=== PATIENT | female | born 1980 | race African-American/Black ===

== ENCOUNTER 2025-06-14 18:54 | Inpatient (IN) | payer OTHER ==
[~2025-06-14] VITALS: Ht 157.5 cm; Wt 93.4 kg
[2025-06-14] MEDS: SODIUM CHLORIDE 0.9% 1,000 ML IV ONE (19:35)
[2025-06-14 19:52] LABS: HEMATOCRIT. 33.6 % (36.0-48.0); HEMOGLOBIN. 11.0 g/dL (12.0-16.0); MEAN PLATELET VOLUME 8.6 fl (7.4-10.4); PLATELET 299 x1000/uL (130-400); RED BLOOD CELL COUNT 3.76 mill/uL (4.2-5.4); RED CELL DISTRIBUTION WIDTH 14.6 % (11.6-14.6)
[2025-06-14 20:08] LABS: CREATININE 0.8 mg/dL (0.6-1.0)
[2025-06-14 20:09] LABS: UREA NITROGEN BLOOD 6 mg/dL (9-23)
[2025-06-14 20:10] LABS: ASPARTATE AMINOTRANSFERASE 15 IU/L (<34); BILIRUBIN DIRECT 0.5 mg/dL (<=3.0); TROPONIN I HIGH SENSITIVITY < 4 ng/L (3.0-34)
[2025-06-14 20:11] LABS: BILIRUBIN TOTAL 1.0 mg/dL (0.1-1.0); PROTEIN TOTAL 6.1 g/dL (6.0-8.3)
[2025-06-14] MEDS: SODIUM CHLORIDE 0.9% (SEPSIS BOLUS) IV ONE (20:13)
[2025-06-14] MEDS: PIPERACILLIN/TAZO 3.375G/50ML 50 ML IV ONE (20:41)
[2025-06-14 20:53] LABS: BAND% 2.0 % (1.0-6.0); LYMPHOCYTES % MANUAL 4.0 % (20.0-60.0); MONOCYTES % MANUAL 3.0 % (2.0-8.0); NEUTROPHILS % MANUAL 91.0 % (45.0-75.0); PLATELET ESTIMATE NORMAL
[2025-06-14 21:03] LABS: INR 1.1
[2025-06-14 21:16] LABS: COLOR URINE ORANGE (YELLOW); GLUCOSE URINE NEGATIVE (NEGATIVE); KETONES URINE 1+ (NEGATIVE); LEUKOCYTE ESTERASE URINE TRACE (NEGATIVE); NITRITE URINE POSITIVE (NEGATIVE); OCCULT BLOOD URINE NEGATIVE (NEGATIVE); PH URINE 5.5 (4.5-8.0); PROTEIN URINE 1+ (NEGATIVE); SPECIFIC GRAVITY URINE 1.032 (1.005-1.030); UROBILINOGEN URINE 1.0 E.U./dL (0.2-1.0)
[2025-06-14 21:39] LABS: HCG SCREEN NEGATIVE
[2025-06-14 21:46] LABS: CLARITY URINE HAZY (CLEAR)
[2025-06-14 21:50] LABS: RBC URINE NONE SEEN /hpf (0-2); SQUAMOUS EPITHELIAL CELL URINE 1+ /lpf (RARE/1+); WBC URINE 0-2 /hpf (0-2)
[2025-06-14 21:51] LABS: BACTERIA URINE TRACE; MUCUS URINE 2+ /lpf (< = 2+)
[2025-06-14] MEDS: MORPHINE SULFATE 4 MG/ML INJ (FOR IV/IM USE) IV ONE (21:55)
[2025-06-14 21:56] LABS: TROPONIN I HIGH SENSITIVITY < 4 ng/L (3.0-34)
[2025-06-14] MEDS: VANCOMYCIN 1G PREMIX 200 ML IV ONE (22:30)
[2025-06-14] MEDS: ACETAMINOPHEN 325MG TABLET PO ONE (22:32)
[2025-06-14] MEDS: KCL 20MEQ/100ML PREMIX 100 ML IV SCH (22:34)
[2025-06-14] MEDS: IOHEXOL-350 100 ML BOTTLE ONE (23:15)
[2025-06-15] MEDS ORDERED: DEXTROSE 50% WATER 50ML SYRINGE IV PRN (02:45)
[2025-06-15 02:47] VITALS: BP 106/66; PULSE 113; RESP 20; TEMP 36.0844
[2025-06-15] MEDS ORDERED: GUAI-741 MT (02:59)
[2025-06-15] MEDS ORDERED: TIRZ12.5 (02:59)
[2025-06-15] MEDS: PIPERACILLIN/TAZO 3.375G/50ML 50 ML IV SCH (06:00)
[2025-06-15] MEDS: BLOOD SUGAR DIAGNOSTIC STRIP TEST SCH (06:00)
[2025-06-15 07:17] LABS: CREATININE 0.8 mg/dL (0.6-1.0); TRIGLYCERIDE 67 mg/dL (0-150); UREA NITROGEN BLOOD 6 mg/dL (9-23)
[2025-06-15 07:18] LABS: LDL CHOLESTEROL 36 mg/dL (5-100)
[2025-06-15 07:19] LABS: HEMATOCRIT. 27.2 % (36.0-48.0); HEMOGLOBIN. 9.4 g/dL (12.0-16.0); MEAN PLATELET VOLUME 8.5 fl (7.4-10.4); PLATELET 253 x1000/uL (130-400); RED BLOOD CELL COUNT 3.04 mill/uL (4.2-5.4); RED CELL DISTRIBUTION WIDTH 14.7 % (11.6-14.6)
[2025-06-15 07:54] LABS: HEPATITIS C AB NON REACTIVE (Neg) (Negative)
[2025-06-15 08:00] VITALS: BP 112/64; PULSE 102; RESP 20; TEMP 36.5; O2SAT 100
[2025-06-15] MEDS ORDERED: INSULIN LISPRO 100 UNITS/ML SUBCUT SCH (08:10)
[2025-06-15] MEDS: GUAIFENESIN/DM 600MG/30MG ER TAB 12HR PO SCH (10:58)
[2025-06-15 12:00] VITALS: BP 104/64; PULSE 98; RESP 18; TEMP 36.2; O2SAT 99
[2025-06-15] MEDS: KETOROLAC 30MG/ML VIAL IV PRN (12:24)
[2025-06-15 16:00] VITALS: BP 105/61; PULSE 96; RESP 19; TEMP 36.7; O2SAT 99
[2025-06-15 19:24] LABS: LYMPHOCYTES % MANUAL 8.0 % (20.0-60.0); MONOCYTES % MANUAL 5.0 % (2.0-8.0); NEUTROPHILS % MANUAL 87.0 % (45.0-75.0); PLATELET ESTIMATE NORMAL
[2025-06-15 20:00] VITALS: BP 124/73; PULSE 101; RESP 18; TEMP 36.2; O2SAT 99
[2025-06-15] MEDS: IPRATROPIUM BROMIDE (0.02%) 0.5MG/2.5ML NEB HHN SCH (21:57)
[2025-06-15 22:07] VITALS: PULSE 79; RESP 20; O2SAT 97
[2025-06-16] VITALS (8 sets, daily range): BP systolic 117–138; BP diastolic 70–77; PULSE 86–101; RESP 16–20; TEMP 36.1–36.5; O2SAT 93–98
[2025-06-16 06:16] LABS: BASOPHILS % 0.1 % (0.0-2.0); EOSINOPHILS % 0.0 % (0.0-5.0); HEMATOCRIT. 26.7 % (36.0-48.0); HEMOGLOBIN. 9.0 g/dL (12.0-16.0); LYMPHOCYTES % 12.7 % (20.0-50.0); MEAN PLATELET VOLUME 8.6 fl (7.4-10.4); MONOCYTES % 4.1 % (2.0-8.0); NEUTROPHILS % 83.1 % (40.0-76.0); PLATELET 235 x1000/uL (130-400); RED BLOOD CELL COUNT 2.97 mill/uL (4.2-5.4); RED CELL DISTRIBUTION WIDTH 14.7 % (11.6-14.6)
[2025-06-16 06:19] LABS: CREATININE 0.8 mg/dL (0.6-1.0); UREA NITROGEN BLOOD 8 mg/dL (9-23)
[2025-06-16] MEDS: GUAIFENESIN 200MG/10ML SUGAR FREE UDC PO PRN (16:01)
[2025-06-16 18:18] LABS: INFLUENZA TYPE A Presumptive Negative (Pres. Neg.); INFLUENZA TYPE B Presumptive Negative (Pres. Neg.)
[2025-06-16 18:20] LABS: RESPIRATORY SYNCYTIAL VIRUS Not Detected (Not Detectd)
[2025-06-16] MEDS: ACETAMINOPHEN 325MG TABLET PO PRN (19:54)
[2025-06-16] MEDS: IPRATROPIUM/ALBUTEROL 0.5-3(2.5)MG/3ML NEB HHN SCH (22:36)
[2025-06-17] VITALS: BP 118/75; PULSE 84; RESP 18; TEMP 36.3; O2SAT 98
[2025-06-17 04:00] VITALS: BP 115/71; PULSE 85; RESP 19; TEMP 36.4; O2SAT 97
[2025-06-17 06:17] LABS: BASOPHILS % 0.1 % (0.0-2.0); EOSINOPHILS % 0.0 % (0.0-5.0); HEMATOCRIT. 26.7 % (36.0-48.0); HEMOGLOBIN. 9.0 g/dL (12.0-16.0); LYMPHOCYTES % 23.5 % (20.0-50.0); MEAN PLATELET VOLUME 8.4 fl (7.4-10.4); MONOCYTES % 6.9 % (2.0-8.0); NEUTROPHILS % 69.5 % (40.0-76.0); PLATELET 285 x1000/uL (130-400); RED BLOOD CELL COUNT 3.04 mill/uL (4.2-5.4); RED CELL DISTRIBUTION WIDTH 15.1 % (11.6-14.6)
[2025-06-17 06:25] LABS: CREATININE 0.8 mg/dL (0.6-1.0)
[2025-06-17 06:26] LABS: UREA NITROGEN BLOOD 9 mg/dL (9-23)
[2025-06-17 08:00] VITALS: BP 118/78; PULSE 83; RESP 20; TEMP 36.6; O2SAT 97
[2025-06-17] MEDS: POTASSIUM CHLORIDE 20MEQ TABLET SR PO NR (08:07)
[2025-06-17 09:15] VITALS: PULSE 89; RESP 18
[2025-06-17] MEDS ORDERED: LEVO750T68 MT (10:55)
[2025-06-17 12:00] VITALS: BP 119/84; PULSE 90; RESP 18; TEMP 36.7; O2SAT 97
[2025-06-17 12:29] VITALS: BP 119/84; PULSE 90; RESP 18; TEMP 98
== END 2025-06-17 14:30 | disposition home or self-care (01) | DRG 871 ==
LOC: ER 18:54 → 7WST 06-15 00:09 → EDBEDREQTM 06-15 00:13 → EDBEDREQDT 06-15 00:13 → EDBEDREQ 06-15 00:13 → ENRESERV 06-15 01:05
PROVIDERS: ADMIT Internal Medicine; ATTEND Internal Medicine
DX: A41.9 Sepsis, unspecified organism (principal); J18.9 Pneumonia, unspecified organism; R57.9 Shock, unspecified; D50.9 Iron deficiency anemia, unspecified; E11.9 Type 2 diabetes mellitus without complications; E87.6 Hypokalemia; N39.0 Urinary tract infection, site not specified; Z20.822 Contact with and (suspected) exposure to COVID-19; Z79.899 Other long term (current) drug therapy; Z88.8 Allergy status to other drugs, medicaments and biological substances
CPT/HCPCS: 36415; 71045; 71275; 80048; 80061; 80076; 81003; 82962; 83036; 83605; 83735; 83880; 84145; 84484; 84703; 85025; 85379; 86705; 87340; 87420; 87426; 87804; 93005; 94070; 94640; 99291; J1885; J2270; J2543; J3373; J3480; J7030; Q9967